=== PATIENT | male | born 1945 | race Caucasian/White ===

== ENCOUNTER 2024-02-06 14:04 | Emergency (ER) | payer MEDICARE, OTHER, SELFPAY ==
[2024-02-06 14:11] VITALS: BP 129/79; PULSE 77; TEMP 36.7; O2SAT 98; BMI 32.0
--- NOTE | 2024-02-06 14:27 | US_ITS ---
[address] [address] Patient Name: JANN KENNEY MRN: [id number] date: 1945 Sex: M Assigned Patient Location: ED.MAIN Current Patient Location: ER Accession/Order Number: [id number] Exam Date: 02/06/2024 14:30 Report Date: 02/06/2024 15:19 At the request of: RUSLAN WILLIS Procedure: US venous doppler LE BI EXAM: US venous doppler LE BI HISTORY: DVT COMPARISON: None. TECHNIQUE: Grayscale, color and Doppler FINDINGS: Region: Bilateral legs Thrombus: None Flow: Normal Augmentation: Normal Compressibility: Normal US/US venous doppler LE BI IMPRESSION: No deep or superficial vein thrombus identified in the legs Electronically authenticated by: IRAM FUNG Date: 02/06/2024 15:19
--- NOTE | 2024-02-06 14:27 | XR_ITS ---
The [address] [address] Patient Name: JANN KENNEY MRN: [id number] date: 1945 Sex: M Assigned Patient Location: ER Current Patient Location: ER Accession/Order Number: [id number] Exam Date: 02/06/2024 14:35 Report Date: 02/06/2024 15:07 At the request of: RUSLAN WILLIS Procedure: XR chest 1V EXAMINATION: XR chest 1V HISTORY: Peripheral edema COMPARISON: No relevant comparison available. TECHNIQUE: AP portable FINDINGS: LUNGS: No significant pulmonary parenchymal abnormalities. VASCULATURE: No increased pulmonary vasculature. PLEURA: No pneumothorax, effusion, or pleural thickening. CARDIAC: No cardiomegaly or cardiac silhouette abnormality. MEDIASTINUM: No visible mass or adenopathy. BONES: No fracture or visible bone lesion. OTHER: Negative. XR/XR chest 1V IMPRESSION: No acute cardiopulmonary process Electronically authenticated by: IRAM FUNG Date: 02/06/2024 15:07
--- NOTE | 2024-02-06 14:28 | ED_ITS ---
HPI - Extremity Problem General Chief complaint: Extremity Problem, Nontraumatic Stated complaint: LOWER EXTREMITY SWELLING Time Seen by Provider: 02/06/24 14:13 Source: patient Mode of arrival: walk-in History of Present Illness HPI Narrative: Patient is a 78-year-old male with a history of A-fib, DVT who presents to the ER with concern for bilateral lower extremity swelling and tenderness. He states for the last 3 to 4 days he has noted that his lower extremities are swollen, he has not had any redness, drainage or open wounds. He recently had an ablation for A-fib done and states everything went well. He continues to take his Xarelto every day. He has had no objective fevers, cough, congestion, chest pain, shortness of breath. No medications taken prior to arrival. No falls or injuries. Related Data Allergies Allergy/AdvReac Type Severity Reaction Status Date / Time No Known Drug Allergies Allergy Verified 02/06/24 14:15 Review of Systems ROS Constitutional Denies: fever or chills Ears, nose, mouth, and throat Denies: throat pain or nasal congestion Cardiovascular Denies: chest pain Respiratory Denies: shortness of breath or cough Gastrointestinal Denies: nausea or vomiting Musculoskeletal Denies: back pain Integumentary/Breast Denies: rash Neurological Denies: headache Hematologic/Lymphatic Denies: easy bruising or easy bleeding Exam Narrative Exam Narrative: Gen.: Awake, alert, in no distress Head: Normocephalic, atraumatic ENT: Moist mucous membranes Respiratory: No respiratory distress, lungs clear bilaterally Cardio: Regular rate and rhythm Extremities: Moves extremities equally, no injuries noted; Bilateral lower extremities with minimal nonpitting edema. Well-healed surgical incisions over the anterior knees bilaterally. No erythema, red streaking. Scabbed well- healing area to the right anterior covarrubias. Psych: Normal mood and affect Neuro: No focal neuro deficit Skin: Warm, dry, intact Constitutional Vital Signs, click to edit/add: Last Vital Signs Temp 98.1 F 02/06/24 14:11 Pulse 77 02/06/24 14:11 Resp 16 02/06/24 14:11 BP 129/79 02/06/24 14:11 Pulse Ox 98 02/06/24 14:11 O2 Del Method Room Air 02/06/24 14:11 Course Vital Signs Vital signs: Vital Signs Temperature 98.1 F 02/06/24 14:11 Pulse Rate 77 02/06/24 14:11 Respiratory Rate 16 02/06/24 14:11 Blood Pressure 129/79 02/06/24 14:11 Pulse Oximetry 98 02/06/24 14:11 Oxygen Delivery Method Room Air 02/06/24 14:11 Temperature 98.1 F 02/06/24 14:11 Pulse Rate 77 02/06/24 14:11 Respiratory Rate 16 02/06/24 14:11 Blood Pressure 129/79 02/06/24 14:11 Pulse Oximetry 98 02/06/24 14:11 Oxygen Delivery Method Room Air 02/06/24 14:11 MDM - Extremity (Nontraumatic) MDM Narrative Medical decision making narrative: Chest x-ray is clear, labs are unremarkable and ultrasound shows no evidence of DVT in the lower extremities. Patient given education and reassurance to elevate the legs. Follow-up with PCP and return to the ER if symptoms change or worsen SUPERVISED APC VISIT, PHYSICIAN ATTESTATION: Based on the medical record the care appears appropriate. ? Medical Records Attestation: I reviewed the patient's medical records. Lab Data Attestation: I reviewed the patient's lab results. Labs: Lab Results 02/06/24 Range/Units 14:33 WBC 4.4 (4.0-11.0) 10^3/uL RBC 4.44 L (4.70-6.10) 10^6/uL Hgb 14.5 (14.0-18.0) g/dL Hct 44.5 (42.0-54.0) % MCV 100.2 H (80.0-94.0) fL MCH 32.7 (25.9-34.0) pg MCHC 32.6 (29.9-35.2) g/dL RDW 13.5 (11.0-15.0) % Plt Count 196 (150-450) 10^3/uL MPV 10.5 (9.5-13.5) fL Neut % (Auto) 52.6 (43.0-75.0) % Lymph % (Auto) 34.6 (20.5-60.0) % [place] % (Auto) 10.1 (1.7-12.0) % Eos % (Auto) 1.8 (0.9-7.0) % Baso % (Auto) 0.7 (0.2-2.0) % Neut # (Auto) 2.3 (1.4-6.5) 10^3/uL Lymph # (Auto) 1.5 (1.2-3.8) 10^3/uL [place] # (Auto) 0.4 (0.3-0.8) 10^3/uL Eos # (Auto) 0.1 (0.0-0.7) 10^3/uL Baso # (Auto) 0.0 (0.0-0.1) 10^3/uL Abs Immat Gran (auto) 0.01 (0.00-0.03) 10^3/uL Imm/Tot Granulo (auto) 0.2 (0.0-0.5) % PT 12.0 H (9.0-11.6) sec INR 1.15 Sodium 139 (136-145) mmol/L Potassium 4.0 (3.5-5.1) mmol/L Chloride 105 (98-107) mmol/L Carbon Dioxide 23.2 (21.0-32.0) mmol/L Anion Gap 14.8 BUN 11.0 (7.0-18.0) mg/dL Creatinine 0.94 (0.70-1.30) mg/dL Est GFR ( Amer) >60 (>=60) Est GFR (Non-Af Amer) >60 (>=60) BUN/Creatinine Ratio 11.7 Glucose 142 H (74-106) mg/dL Calcium 9.1 (8.5-10.1) mg/dL Total Bilirubin 1.1 H (0.2-1.0) mg/dL AST 31 (15-37) U/L ALT 35 (16-63) U/L Alkaline Phosphatase 79 (46-116) U/L Troponin I High Sens 25.0 (4.0-76.1) pg/mL NT-Pro-B Natriuret Pep 195.0 (<=1800.0) pg/mL Total Protein 7.3 (6.4-8.2) g/dL Albumin 3.7 (3.4-5.0) g/dL Globulin 3.6 g/dL Albumin/Globulin Ratio 1.0 Imaging Data Chest x-ray: Attestation: I have reviewed the pertinent imaging results. Radiologist's impression: ITS Impressions Chest X-Ray 02/06/24 14:27 IMPRESSION: No acute cardiopulmonary process Electronically authenticated by: IRAM FUNG Date: 02/06/2024 15:07 Venous Doppler Study 02/06/24 14:27 IMPRESSION: No deep or superficial vein thrombus identified in the legs Electronically authenticated by: IRAM FUNG Date: 02/06/2024 15:19 Discharge Plan Discharge Stand Alone Forms: Portal Instructions Chief Complaint: Extremity Problem, Nontraumatic Clinical Impression: Peripheral edema Patient Disposition: Home, Self-Care Time of Disposition Decision: 15:29 Condition: Good Print Language: Ukrainian Instructions: Edema (ED) Referrals: Physician,Non-Staff, MD [Primary Care Provider] - 1 week
[2024-02-06 14:46] LABS: Basophils Percent Auto 0.7 % (0.2-2.0); Eosinophils Absolute Auto 0.1 10^3/uL (0.0-0.7); Eosinophils Percent Auto 1.8 % (0.9-7.0); Hematocrit 44.5 % (42.0-54.0); Hemoglobin 14.5 g/dL (14.0-18.0); Immature Granulocytes Abs Auto 0.01 10^3/uL (0.00-0.03); Immature Granulocytes Pct Auto 0.2 % (0.0-0.5); Lymphocytes Absolute Auto 1.5 10^3/uL (1.2-3.8); Lymphocytes Percent Auto 34.6 % (20.5-60.0); Mean Corpuscular HGB Conc 32.6 g/dL (29.9-35.2); Mean Corpuscular Hemoglobin 32.7 pg (25.9-34.0); Mean Corpuscular Volume 100.2 fL (80.0-94.0); Mean Platelet Volume 10.5 fL (9.5-13.5); Monocytes Absolute Auto 0.4 10^3/uL (0.3-0.8); Monocytes Percent Auto 10.1 % (1.7-12.0); Neutrophils Absolute Auto 2.3 10^3/uL (1.4-6.5); Neutrophils Percent Auto 52.6 % (43.0-75.0); Platelet Count 196 10^3/uL (150-450); Red Blood Count 4.44 10^6/uL (4.70-6.10); Red Cell Distribution Width 13.5 % (11.0-15.0); White Blood Count 4.4 10^3/uL (4.0-11.0)
[2024-02-06 15:07] LABS: Alanine Aminotransferase 35 U/L (16-63); Albumin Level 3.7 g/dL (3.4-5.0); Alkaline Phosphatase 79 U/L (46-116); Anion Gap 14.8; Aspartate Amino Transferase 31 U/L (15-37); BUN Creatinine Ratio 11.7; Bilirubin Total 1.1 mg/dL (0.2-1.0); Calcium 9.1 mg/dL (8.5-10.1); Carbon Dioxide 23.2 mmol/L (21.0-32.0); Chloride 105 mmol/L (98-107); Estimated GFR (African America >60 (>=60); Estimated GFR (Non-African Ame >60 (>=60); Globulin 3.6 g/dL; Glucose 142 mg/dL (74-106); Sodium 139 mmol/L (136-145); Total Protein 7.3 g/dL (6.4-8.2)
[2024-02-06 15:16] LABS: INR 1.15
[2024-02-06 15:35] VITALS: BP 145/78; PULSE 75; O2SAT 98
== END 2024-02-06 15:36 | disposition home or self-care (01) ==
PROVIDERS: Physician Assistant; Emergency Provider Student in an Organized Health Care Education/Training Program
DX: R60.0 Localized edema (principal); I48.91 Unspecified atrial fibrillation; Z86.718 Personal history of other venous thrombosis and embolism; Z79.01 Long term (current) use of anticoagulants
CPT/HCPCS: 36415; 71045; 80053; 83880; 84484; 85025; 85610; 93970; 99285

== ENCOUNTER 2025-07-29 08:02 | Outpatient (OUT) | payer MEDICARE, SELFPAY ==
--- OUTSIDE RECORDS SUMMARY | 2025-07-29 08:05 | XMS_ITS | Clinical Summary ---
Author Organization [facility] Address [address] [place] [address] Care Team Providers Care Endoscopic Technician Name Role Phone [facility] (Radhika Baumann), Other [facility] Care Provider Allergies Active AllergyReactionsCriticalityNoted CbrlJfrylklxMzlnzirkyqo71/16/2012 Medications MedicationSigDispense QuantityRefillsLast FilledStart DateEnd DateStatus rosuvastatin 5 MG PO TABS Indications:A-fib,Encounter for long-term (current) use of other medications,SOB (shortness of breath)take 1 Tab by mouth daily.Active sertraline 50 MG PO TABS Indications:A-fib,Encounter for long-term (current) use of other medications,SOB (shortness of breath)take 1 Tab by mouth daily.Active tadalafil (CIALIS) 20 MG PO TABS Indications:A-fib,Encounter for long-term (current) use of other medications,SOB (shortness of breath)As directedActive warfarin (COUMADIN) 5 MG PO tablet Take 5mg daily. Adjust after INR 30 Tab ctive metoprolol succinate (TOPROL XL) 25 MG PO tablet XL take 1 Tab by mouth every 12 hours. 60 Tab ctive AMIOdarone 200 MG PO TABS Indications:Atrial Fibrillationtake 1 Tab by mouth daily. Indications: Atrial Fibrillation 7 Tab ctive Active Problems ProblemNoted DateDiagnosed DateHTN (hypertension)11/15/2011 Assessment & Plan (11/16/2011 7:23 AM EDT): Well controlled. Other malaise and cznwwsm9311/15/2011-fib10/20/2011 Assessment & Plan (11/16/2011 7:23 AM EDT): Currently in SR. Continues Amiodarone and Coumadin. INR 2.1 today. Heparin DC'd. Plan probable DC today. Social History Tobacco UseTypesPacks/DayYears UsedDateSmoking Tobacco: FormerCigarettes0.14 Smokeless Tobacco: FormerQuit: 10/30/1991Alcohol UseStandard Drinks/WeekComments Yes0 (1 standard drink = 0.6 oz pure alcohol)Sex and Gender InformationValueDate RecordedSex Assigned at BirthNot on fileLegal UywRjcv0509/03/2012 7:11 PM EST Gender IdentityNot on fileSexual OrientationNot on file Last Filed Vital Signs Vital SignReadingTime TakenCommentsBlood Wxazyjwf785/9101/03/2012 11:02 AM EDT Iaurm863401/03/2012 11:02 AM NVBSsjfcfgpfrp51.7 ??C (98.1 ??F)01/03/2012 11:02 AM EDTRespiratory Clnv975511/16/2011 11:27 AM EDTOxygen Ixyehyxuyr52%01/03/2012 11:02 AM EDTInhaled Oxygen Concentration--Tvzixp993.1 kg (251 lb 8 oz)01/03/2012 11:02 AM MYGXsiczu147 cm (6' 2 )01/03/2012 11:02 AM EDTBody Mass Index32.2906 11:02 AM EDT Plan of Treatment Health MaintenanceDue DateLast DoneCommentsHEPATITIS C VIRUS AWZZLDTYW1945 TBTQVWL2406/03/1945TDAP (ADULT)1966COLORECTAL CANCER SCREENING DISCUSSION 1992PNEUMOCOCCAL VACCINE SERIES (1 of 1 - PCV)1997ZOSTER (SHINGLES) VACCINE (1 of 2)1997RSV VACCINE (1 - 1-dose 75+ series)2COVID-19 VACCINE (1 - 2024- season)2025INFLUENZA VACCINE (#1)2025HEP B VACCINEAged OutNo longer eligible based on patient's age to complete this topic Care Teams Team MemberRelationshipSpecialtyStart DateEnd Date [facility] (Radhika Baumann), Other [address] [place] [address] PCP - General10/13/11
--- OUTSIDE RECORDS SUMMARY | 2025-07-29 08:05 | XMS_ITS | Clinical Summary ---
Author Organization [facility] Address [address] [place] [address] Care Team Providers Care Head Start Coordinator Name Role Phone Unavailable Primary Care Provider Unavailabl e Social History Tobacco UseTypesPacks/DayYears UsedDateSmoking Tobacco: Never AssessedSex and Gender InformationValueDate RecordedSex Assigned at BirthNot on fileLegal Sex Male10/13/2022 7:21 PM EDTGender IdentityNot on fileSexual OrientationNot on file Last Filed Vital Signs Vital SignReadingTime TakenCommentsBlood Pressure--Pulse--Temperature-- Respiratory Rate--Oxygen Saturation--Inhaled Oxygen Concentration--Jezxvt58.4 kg (217 lb)11/07/2020 12:00 PM MJKPvnsfo687 cm (6' 2 )11/07/2020 12:00 PM EDTBody Mass Index27.8611/07/2020 12:00 PM EDT Plan of Treatment [place] [address]
--- OUTSIDE RECORDS SUMMARY | 2025-07-29 08:05 | XMS_ITS | Clinical Summary ---
Author Organization [facility] Address [address] [place] [address] Phone Care Team Providers Care Chief Quality Officer Name Role Phone Unavailable Primary Care Provider Unavailabl e Social History Tobacco UseTypesPacks/DayYears UsedDateSmoking Tobacco: Never AssessedSex and Gender InformationValueDate RecordedSex Assigned at BirthNot on fileLegal Sex Male09/06/2022 11:00 AM ESTGender IdentityNot on fileSexual OrientationNot on file Plan of Treatment Not on file
--- OUTSIDE RECORDS SUMMARY | 2025-07-29 08:05 | XMS_ITS | Clinical Summary ---
Author Organization [facility] Address [address] [place] [address] Care Team Providers Care Real Estate Valuer Name Role Phone Chen Javon Yasmany MONDRAGON Primary Care Provider Allergies Active AllergyReactionsCriticalityNoted LgelRcmfvargWmmuiwuytwbVthhmoo55/16/2011 Medications MedicationSigDispense QuantityRefillsLast FilledStart DateEnd DateStatus traMADol (ULTRAM) 50 mg tablet Take 50 mg by mouth every 6 hours as needed.Active tamsulosin (FLOMAX) 0.4 mg Take 0.4 mg by mouth daily at bedtime.Active rivaroxaban (XARELTO) 20 mg tablet Take 20 mg by mouth daily with dinner.Active Tadalafil (CIALIS) 20 mg tab(s) Take 5 mg by mouth once daily as needed (daily).Active dofetilide (TIKOSYN) 250 mcg capsule Take 1 capsule by mouth twice daily. 28 capsule 10/22/2022ctive atorvastatin (LIPITOR) 40 mg tablet Take 1 tablet by mouth daily at bedtime.10/22/2022ctive metoprolol succinate ER (TOPROL XL) 50 mg 24 hr tablet Take 1 tablet by mouth daily at bedtime. 90 tablet ctive rosuvastatin (CRESTOR) 5 mg tablet Take 1 tablet by mouth once daily.Active metFORMIN (GLUCOPHAGE) 500 mg tablet Take 500 mg by mouth.08/30/2023ctive Active Problems ProblemNoted DateDiagnosed DateType 2 diabetes mellitus with diabetic cataract 06/05/2024 Assessment & Plan (06/05/2024 9:55 AM EST): Assessment: Reports compliant with medication Hemoglobin A1C (%) Date Value 11/18/2016 7.5 Sleep apnea06/05/20243154Qxztkzyhhrkgck81/05/2024 Assessment & Plan (06/05/2024 9:55 AM EST): Assessment: Controlled with statin. Monitored per PCP. Atypical atrial ixgseej7112/22/2023Obesity, Class I, BMI 30-34.91 Persistent atrial niamhlnmwfdm50/18/2021 Overview (05/21/2021): Prior PVI in 2012, then redo PVI + CTI 12/2019. Recurrence in the past 2 months Being reloaded on tikosyn therapy Maintained on Xarelto and reports no missed doses Dose 6 250 mcg tikosyn today s/p CVN 05/20/2021 and has maintained SR overnight Will keep electrolytes replaced; K > 4 and Mag > 2 during admission Last EKG with QTc of 477 ms [facility] in [facility] with [facility] and they are processing it now He will need a short term supply of tikosyn to bedside delivery Discharging home today with follow up in the office PAF (paroxysmal atrial fibrillation)11/16/2016 Assessment & Plan (06/05/2024 9:54 AM EST): Assessment: Stable, rate controlled on BB. Anticoagulated with Xarelto Follows with Cardiology S/P ablation HTN (hypertension)08/13/2013 Overview (05/18/2021): Controlled Continue metoprolol Assessment & Plan (06/05/2024 9:54 AM EST): Assessment: Stable and compliant with medications Followed by PCP Last 5 Encounter BP Readings: Date: BP: 06/05/2024 113/76 06/01/2024 112/74 05/03/2024 102/68 01/25/2024 118/76 12/21/2023 116/75 S/P ablation of atrial vzejkxhjdyhl02/13/2014 Overview (05/18/2021): See persistent AF A-fib04/18/2013 Immunizations ImmunizationAdministration DatesNext Dueinfluenza (HD-IIV4) vaccine, age 65+ yr, high dose, quadrivalent, PF (FLUZONE HIGH-DOSE)05/21/2021(),05/20/2021 pneumococcal polysaccharide (PPV23) vaccine, 23 valent (PNEUMOVAX 23)09/28/2016, 09/28/2016 Family History Medical HistoryRelationCommentsNo Family HistoryOtherRelationStatusCommentsOther Social History Tobacco UseTypesPacks/DayYears UsedDateSmoking Tobacco: FormerCigarettes0.54 09/06/1989 - 09/06/1993Smokeless Tobacco: Never Tobacco Cessation:Counseling Given: Not Answered Alcohol UseStandard Drinks/WeekCommentsNo0 (1 standard drink = 0.6 oz pure alcohol)Area Deprivation IndexAnswerDate RecordedNational Score (1-100), lower number is lower xlcs618809/06/2023State Score (1-10), lower number is lower risk7 4Data from: https://www.neighborhoodatlas.[facility].edu/. Last address used for hor[address]onbhg[address]09/06/2023Sex and Gender Information ValueDate RecordedSex Assigned at WnnvrWeyr46/15/2019 4:42 PM ESTLegal SexMale 07/02/2012 8:51 AM ESTGender XthvmidnNifi08/15/2019 4:42 PM ESTSexual XxpfwdkecobIpmqrsaw18/15/2019 4:42 PM EST Last Filed Vital Signs Vital SignReadingTime TakenCommentsBlood Kjayccfd451/7606/19/2024 10:58 AM EST Qwogd430806/19/2024 10:58 AM FTPTlqjyqxobox47.1 ??C (97 ??F)06/19/2024 10:58 AM ESTRespiratory Frww207908/19/2023 10:58 AM ESTOxygen Xksitegdss92%06/19/2024 10:58 AM ESTInhaled Oxygen Concentration--Zawnzz214 kg (231 lb 7.7 oz)06/05/2024 9:46 AM PGITumxki028 cm (6' 2 )06/05/2024 9:46 AM ESTBody Mass Index29.7206/05/2024 9:46 AM EST Plan of Treatment Health MaintenanceDue DateLast DoneCommentsDiabetic Foot Exam1957Dilated Retinal Exam1957Urine Albumin:Creatinine Ratio1957nnual PCP Team Chronic Disease Visit1965Anxiety Grhsjuhvq54/03/1965Depression Screening 1965Hepatitis C Xgvzqbqwn17/03/1965Medicare Annual Wellness Visit 06/01/20129114CoK1D74LDL Meymrfmdcnl91RSV Vaccine (1 - 1-dose 75+ series)2022dvance Directive Nusvidlwtv85/01/2025 Covid-19 Vaccine ( season)512/09/2020, 09/24/2020, 09/03/2020Influenza Vaccine (#1)/05/2025, 08/30/2023, 08/20/2022, Additional history existsDTaP,Tdap,Td Vaccine (3 - Td or Tdap)03/03/2033 03/03/2023, 05/07/2013, 08/31/2002Pneumococcal Vaccine: 50+Rpfeulduy26/28/2017, 09/28/2016, 08/13/2015, Additional history existsShingrix VaccineCompleted 04/20/2019, 10/13/2018, 01/22/2016 Goals GoalPatient Goal TypeAssociated ProblemsRecent ProgressPatient-Stated?Author Blood Pressure < 130/80 Blood Lusakesd302/76(06/19/2024 10:58 AM EST)Sofia Brooks, RN Medical Devices ImplantedTypeAreaManufacturerDevice IdentifierShelf Expiration DateModel / Serial / Sal Surgipro Large Polypropylene Surgical Nonabsorbable Plug Knitted - [id number] Implanted:Qty: 1 on 06/19/2024 at [facility] FHCMeshRight: AbdomenMEDTRONIC INC 05/31/2028SMPL-01 / / [id number] Procedures Procedure NamePriorityDate/TimeAssociated DiagnosisCommentsHGB A1C (EU,FV,HL,CHEVY,MM,SP)ASA11/18/2016 6:16 AM EDT LIPID PANEL BASIC (EU,FV,HL,CHEVY,MM,SP)ASA11/18/2016 6:16 AM EDT from Last 3 Months or Most Recently Relevant to Health Maintenance Results * (ABNORMAL) LIPID PANEL BASIC (AV,EU,FV,HL,CHEVY,MM,SP) (11/18/2016 6:16 AM EDT) ComponentValueRef RangeTest MethodAnalysis TimePerformed AtPathologist PwbdlcxkoGddhmqdyodxo72601 - 149 mg/dL11/18/2016 5:41 PM EDTCMADISON HEALTH MAIN LABORATORYCholesterol, Vdjpy416719 - 199 mg/dL11/18/2016 5:41 PM EDT [facility] LABORATORYHDL Iilepvfxhde07(L)>45 mg/dL11/18/2016 5:41 PM EDTRUMB[facility] MAIN LABORATORYVLDL Jtiwmbafstp136 - 40 mg/dL11/18/2016 5:[address] [facility] MAIN LABORATORYLDL Crtuotliyc98(L)60 - 129 mg/dL 11/18/2016 5:[address] [facility] MAIN LABORATORYFasting TimeUnknownhrs 11/18/2016 6:34 AM EDTFAIRVIEW LABORATORYTC:HDL Ratio3.231.00 - 5.0004 5:[address] [facility] MAIN LABORATORYLDL:HDL Ratio1.570.50 - 3.55 11/18/2016 5:[address] [facility] MAIN LABORATORYNon HDL Hiixgezpdwh84(L) 90 - 159 mg/dL11/18/2016 5:[address] [facility] MAIN LABORATORYSpecimen (Source)Anatomical Location / LateralityCollection Method / VolumeCollection TimeReceived TimeBlood specimen (specimen)BLOOD SPECIMEN / Eusfeud0311/18/2016 6:16 AM EDT11/18/2016 6:17 AM EDT Narrative Authorizing ProviderResult TypeResult StatusElizabemateo Lr APRN.CNPLABORATORY REGIONALFinal ResultPerforming OrganizationAddressCity/State/ZIP CodePhone Number [facility] [address] [place] [address] [facility] [address] [place] [address] * (ABNORMAL) HGB A1C (AV,EU,FV,HL,CHEVY,MM,SP) (11/18/2016 6:16 AM EDT)Component ValueRef RangeTest MethodAnalysis TimePerformed AtPathologist Signature Hemoglobin A1C7.5(H)4.3 - 5.6 %11/18/2016 9:28 AM EDTCMADISON HEALTH MAIN LABORATORYComment: [place] Diabetes Association guidelines indicate that patients with HgbA1c in the range 5.7-6.4% are at increased risk for development of diabetes, and intervention by lifestyle modification may be beneficial. HgbA1c greater or equal to 6.5% is considered diagnostic of diabetes. Estimated Average Atjixrh149jf/dL11/18/2016 9:[address] [facility] MAIN LABORATORYComment: eAG: (Estimated average glucose) is a calculated value from HgbA1c and is promotional representative of the average blood glucose level in the last 2-3 month period. Specimen (Source)Anatomical Location / LateralityCollection Method / Volume Collection TimeReceived TimeBlood specimen (specimen)WHOLE BLOOD SPECIMEN / Acxeofj3411/18/2016 6:16 AM EDT11/18/2016 6:17 AM EDT Narrative Authorizing ProviderResult TypeResult StatusElizabemateo Lr APRN.CNPLABORATORY REGIONALFinal ResultPerforming OrganizationAddressCity/State/ZIP CodePhone Number [facility] [address] [place] [address] from Last 3 Months or Most Recently Relevant to Health Maintenance Insurance Care Teams Team MemberRelationshipSpecialtyStart DateEnd Date de Javon Aldrich DO PCP - GeneralGenetics04/04/13
[2025-07-29 08:25] LABS: Estimated GFR (African America >60 (>=60 mL/min/1.73m^2); Estimated GFR (Non-African Ame >60 (>=60 mL/min/1.73m^2)
--- NOTE | 2025-07-29 09:21 | CT_ITS ---
The [address] [address] Patient Name: JANN KENNEY MRN: [id number] date: 1945 Sex: M Assigned Patient Location: LAB Current Patient Location: LAB Accession/Order Number: [id number] Exam Date: 07/29/2025 09:05 Report Date: 07/29/2025 10:37 At the request of: PATRICIA TORRES NP Procedure: CT urogram CT UROGRAM WITHOUT AND WITH INTRAVENOUS CONTRAST CLINICAL DATA: Microscopic hematuria. COMPARISON: 08/12/2020 Spiral images were obtained through the abdomen pelvis before and after intravenous administration of 100 mL of Omnipaque 300. This CT exam was performed using one or more following dose reduction techniques: Automated exposure control, adjustment of the mA and/or kV according to patient size, or use of iterative reconstruction technique. Limited cuts through the lung bases show atelectasis and/or scarring. There is a tiny hiatal hernia. The heart is top normal in size and coronary artery disease is seen. The kidneys are within normal limits for size, position and contour. Minimal perinephric fibrofatty stranding is seen. Precontrast, there is a punctate stone at the midpole and a 6 mm stone at the inferior pole of the left kidney. No right renal, ureteral or bladder stones are identified. Following contrast administration, the renal nephrograms are symmetric. There are tiny right upper and left lower pole renal cortical cysts. No hydronephrosis is present. The ureters are segmentally opacified down to the bladder. There are clips suggesting prior urolift procedure. There is an enlarged, slightly lobulated prostate with mass effect at the bladder trigone. The urinary bladder is not fully distended and the wall appears thickened. No calcified gallstones are noted. No intrahepatic lesions are seen. The spleen, pancreas and adrenal glands show no acute findings. There is mild plaque at the aorta, iliac and some of the visceral arteries. Small lymph nodes are present. No ascites is identified. The small bowel loops are not distended. There is air and stool along the colon. The appendix is not identified. There is S-shaped thoracolumbar scoliotic curvature and degenerative changes at the spine. Multilevel stenosis is visualized, greatest at L3-4. There is also degenerative change at the SI joints and heterotopic bone associated with the iliac crests. Images through the pelvis show nondistended small bowel. There is mild distal colonic stool. Sigmoid diverticula are noted, without associated active inflammation. There is no pelvic ascites. There are postoperative changes at the right groin which may relate to previous hernia repair. CT/CT urogram IMPRESSION: LEFT NEPHROLITHIASIS AND TINY BILATERAL RENAL CYSTS. NO OBSTRUCTIVE UROPATHY. PROSTATE HYPERTROPHY. MILD URINARY BLADDER WALL THICKENING. THIS MAY RELATE TO INCOMPLETE DISTENTION THOUGH CORRELATION IS RECOMMENDED TO EXCLUDE CYSTITIS. DIVERTICULOSIS. SCOLIOSIS AND DEGENERATIVE CHANGES AT THE SPINE WITH ASSOCIATED STENOSIS Impression dictated by: Trice Brown M.D. 07/29/2025 10:37 AM Dictation Location: [place] [address] Electronically authenticated by: [id number] Y Date: 07/29/2025 10:37
== END 2025-07-29 08:03 | disposition home or self-care (01) ==
LOC: LAB 08:02
PROVIDERS: Pathology Anatomic Pathology & Clinical Pathology; Visit Provider Nurse Practitioner Family
DX: Z01.818 Encounter for other preprocedural examination (principal); R31.29 Other microscopic hematuria; N20.0 Calculus of kidney; K57.90 Diverticulosis of intestine, part unspecified, without perforation or abscess without bleeding
CPT/HCPCS: 36415; 74178; 82565; Q9967